=== PATIENT | male | born 1980 | race Caucasian/White ===

== ENCOUNTER 2023-11-10 18:29 | Emergency (ER) | payer MEDICAID, OTHER ==
[~2023-11-10] VITALS: Ht 172.7 cm; Wt 95.3 kg
[2023-11-10 18:43] VITALS: BP 146/95; PULSE 103; RESP 20; TEMP 97.3; O2SAT 96
[2023-11-10] MEDS: ACETAMINOPHEN EXTRA STRENGTH 500 MG TAB PO ONE (20:41)
[2023-11-10 21:04] VITALS: BP 141/92; PULSE 99; RESP 20; TEMP 97.6; O2SAT 98
[2023-11-10] MEDS: IBUPROFEN 400 MG TAB PO ONE (21:48)
[2023-11-10] MEDS ORDERED: IBUP-1842 PO (22:08)
[2023-11-10] MEDS ORDERED: ACET-10509 PO (22:08)
[2023-11-10] MEDS ORDERED: CAPS1ADH5 TP (22:08)
== END 2023-11-10 22:24 | disposition home or self-care (01) ==
LOC: MED 18:29
DX: S39.012A Strain of muscle, fascia and tendon of lower back, initial encounter (principal); S46.812A Strain of other muscles, fascia and tendons at shoulder and upper arm level, left arm, initial encounter; I10 Essential (primary) hypertension; Z79.899 Other long term (current) drug therapy; V49.88XA Car occupant (driver) (passenger) injured in other specified transport accidents, initial encounter; Y93.89 Activity, other specified; Y92.89 Other specified places as the place of occurrence of the external cause; Y99.8 Other external cause status
CPT/HCPCS: 72100; 73030; 99284